=== PATIENT | male | born 1980 | race Caucasian/White ===

== ENCOUNTER 2017-01-15 20:35 | Emergency (ER) | payer SELFPAY ==
[~2017-01-15] VITALS: Ht 170.2 cm; Wt 125.2 kg
[2017-01-15] MEDS ORDERED: PAXIL10 MG ORAL (20:44)
[2017-01-15 21:04] VITALS: BP 126/85
--- NOTE | 2017-01-15 21:18 | Emergency Room Report ---
History of Present Illness General Chief Complaint: Chest Pain Source: Patient Present Illness HPI Patient presents with complaints of chest pain and heaviness He reports that initially he felt some discomfort to his left jaw He feels pain when he moves his jaw open and close Soon after that patient began feeling some heaviness in the chest Patient had a sensation of chills Also developed a mild headache At this time the chest pain has significantly improved Denies any vomiting or diarrhea Denies any back or flank pain Patient reports that he was at an advanced at approximately 6 x 8 o'clock he began feeling the sensation and presents for further eval Allergies: Coded Allergies: No Known Allergies (Unverified , 01/15/17) Patient History Past Medical History: see triage record Pertinent Family History: none Reviewed Nursing Documentation: PMH: Agreed, PSxH: Agreed Nursing Documentation-PMH Past Medical History: No Stated History Review of Systems All Other Systems: negative except mentioned in HPI Physical Exam Vital Signs Date Time Temp Pulse Resp B/P Pulse Ox O2 Delivery O2 Flow Rate FiO2 01/15/17 20:40 98.8 89 20 126/85 97 Room Air Sp02 EP Interpretation: reviewed, normal General Appearance: well appearing, no apparent distress Head: normocephalic, atraumatic Eyes: bilateral eye EOMI, bilateral eye PERRL ENT: hearing grossly normal, normal pharynx, TMs + canals normal, uvula midline Neck: full range of motion, supple, no meningismus, no bony tend Respiratory: lungs clear, normal breath sounds, no rhonchi, no respiratory distress, no retraction, no accessory muscle use Cardiovascular #1: normal peripheral pulses, regular rate, rhythm, no edema, no gallop, no JVD, no murmur Gastrointestinal: normal bowel sounds, non tender, soft, no mass, no organomegaly, non-distended, no guarding, no hernia, no pulsatile mass, no rebound Genitourinary: no CVA tenderness Musculoskeletal: normal inspection Neurologic: oriented x3, responsive, electrician marine III-XII nml as tested, motor strength/ tone normal, sensory intact Psychiatric: mood/affect normal Skin: normal color, no rash, warm/dry, palpation normal Lymphatic: normal inspection, no adenopathy Medical Decision Making Diagnostic Impression: Primary Impression: Chest pain ER Course Patient is a fairly complex patient with multiple differential to consideration including but not limited to cardiac cardiopulmonary and vascular emergencies Patient also reports recent travel from [place] however continues to deny any shortness of breath or pleurisy Patient's d-dimer along with other blood work or appropriate Chest x-ray is somewhat difficult to evaluate given the patient's body habitus but no obvious focal infiltrate Patient continues to do better here in the emergency room in a stable for close outpatient followup Labs Test 01/15/17 21:00 White Blood Count 9.4 K/UL (4.8-10.8) Red Blood Count 4.53 M/UL (4.70-6.10) Hemoglobin 15.0 G/DL (14.2-18.0) Hematocrit 41.9 % (42.0-52.0) Mean Corpuscular Volume 92 FL (80-99) Mean Corpuscular Hemoglobin 33.1 PG (27.0-31.0) Mean Corpuscular Hemoglobin Concent 35.8 G/DL (32.0-36.0) Red Cell Distribution Width 11.2 % (11.6-14.8) Platelet Count 230 K/UL (150-450) Mean Platelet Volume 7.4 FL (6.5-10.1) Neutrophils (%) (Auto) 62.3 % (45.0-75.0) Lymphocytes (%) (Auto) 22.6 % (20.0-45.0) Monocytes (%) (Auto) 8.0 % (1.0-10.0) Eosinophils (%) (Auto) 5.5 % (0.0-3.0) Basophils (%) (Auto) 1.6 % (0.0-2.0) D-Dimer 328 ng/mL (<500) Sodium Level 142 mEQ/L (135-145) Potassium Level 4.1 mEQ/L (3.4-4.9) Chloride Level 99 mEQ/L (98-107) Carbon Dioxide Level 24 mEQ/L (20-30) Anion Gap 19 (5-15) Blood Urea Nitrogen 18 mg/dL (7-23) Creatinine 1.1 mg/dL (0.7-1.2) Estimat Glomerular Filtration Rate > 60 mL/min (>60) Glucose Level 138 mg/dL (74-106) Calcium Level 9.7 mg/dL (8.6-10.2) Total Bilirubin 0.5 mg/dL (0.0-1.2) Aspartate Amino Transf (AST/SGOT) 18 U/L (5-40) Alanine Aminotransferase (ALT/SGPT) 21 U/L (3-41) Alkaline Phosphatase 121 U/L (40-129) Total Creatine Kinase 237 U/L (38-174) Creatine Kinase MB 1.7 ng/mL (< 6.7) Creatine Kinase MB Relative Index 0.7 Troponin I < 0.30 ng/mL (<=0.30) Pro-B-Type Natriuretic Peptide 41 pg/mL (0-125) Total Protein 7.8 g/dL (6.6-8.7) Albumin 5.0 g/dL (3.5-5.2) Globulin 2.8 g/dL Albumin/Globulin Ratio 1.7 (1.0-2.7) Lipase 25 U/L (< 60) Urine Opiates Screen Negative (NEGATIVE) Urine Barbiturates Screen Negative (NEGATIVE) Phencyclidine (PCP) Screen Negative (NEGATIVE) Urine Amphetamines Screen Negative (NEGATIVE) Urine Benzodiazepines Screen Positive (NEGATIVE) Urine Cocaine Screen Negative (NEGATIVE) Urine Marijuana (THC) Screen Negative (NEGATIVE) EKG Diagnostic Results Rate: normal Rhythm: NSR ST Segments: no acute changes Rhythm Strip Diag. Results EP Interpretation: yes Rate: 67 Rhythm: NSR, no PVC's, no ectopy Chest X-Ray Diagnostic Results Chest X-Ray Ordered: Yes # of Views/Limited/Complete: 1 View Interpretation: no consolidation, no effusion, no pneumothorax, no acute cardiopulmonary disease - Mildly difficult study with questionable increased markings however likely secondary to body habitus Indication: Chest Pain Impression: No acute disease Date Electronically Signed: Jan 15, 2017 Time Electronically Signed: 21:40 Interpreting ER Physician: Dr kirkland Last Vital Signs Date Time Temp Pulse Resp B/P Pulse Ox O2 Delivery O2 Flow Rate FiO2 01/15/17 21:04 89 20 Room Air 01/15/17 21:04 98.8 126/85 97 Status: improved Disposition: HOME, SELF-CARE Condition: Improved Referrals: NOT CHOSEN IPA/,REFERRING (PCP) Additional Instructions: Patient is provided with the discharge instructions notified to follow up with primary doctor in the next 2-3 days otherwise return to the er with any worsening symptoms. Please note that this report is being documented using [employer] technology. This can lead to erroneous entry secondary to incorrect interpretation by the dictating instrument. JOSUE KIRKLAND D.O. Jan 15, 2017 21:18
[2017-01-15 21:25] LABS: BASOPHILS % (AUTO) 1.6 % (0.0-2.0); EOSINOPHILS % (AUTO) 5.5 % (0.0-3.0); LYMPHOCYTES % (AUTO) 22.6 % (20.0-45.0); MEAN CORPUSCULAR HEMOGLOBIN 33.1 PG (27.0-31.0); MEAN CORPUSCULAR HGB CONC 35.8 G/DL (32.0-36.0); MEAN CORPUSCULAR VOLUME 92 FL (80-99); MEAN PLATELET VOLUME 7.4 FL (6.5-10.1); NEUTROPHILS % (AUTO) 62.3 % (45.0-75.0); PLATELET COUNT 230 K/UL (150-450); RED BLOOD COUNT 4.53 M/UL (4.70-6.10); RED CELL DISTRIBUTION WIDTH 11.2 % (11.6-14.8); WHITE BLOOD COUNT 9.4 K/UL (4.8-10.8)
[2017-01-15 21:42] LABS: TROPONIN I < 0.30 ng/mL (<=0.30)
[2017-01-15 21:53] LABS: ALANINE AMINOTRANSFERASE 21 U/L (3-41); ALBUMIN/GLOBULIN RATIO 1.7 (1.0-2.7); ANION GAP 19 (5-15); CALCIUM 9.7 mg/dL (8.6-10.2); CARBON DIOXIDE 24 mEQ/L (20-30); CHLORIDE 99 mEQ/L (98-107); CREATININE 1.1 mg/dL (0.7-1.2); GLOMERULAR FILTRATION RATE > 60 mL/min (>60); HEMOLYSIS 33; LIPASE 25 U/L (< 60); POTASSIUM 4.1 mEQ/L (3.4-4.9); SODIUM 142 mEQ/L (135-145); TOTAL PROTEIN 7.8 g/dL (6.6-8.7)
[2017-01-15 21:54] LABS: ASPARTATE AMINO TRANSFERASE 18 U/L (5-40)
[2017-01-15 22:00] VITALS: BP 132/69
[2017-01-15 22:04] LABS: CKMB 1.7 ng/mL (< 6.7)
[2017-01-15 22:54] VITALS: BP 132/69
--- NOTE | 2017-01-16 18:11 | Cardiology Report ---
APPROVED REPORT EKG Measurement Heart [id number] Normal sinus rhythm Normal ECG
--- NOTE | 2017-01-17 09:34 | Diagnostic Imaging Report ---
Indication: Chest pain Technique: Single portable AP view of the chest. Findings: Comparison: None. The bones and extra pulmonary soft tissues, cardiomediastinal silhouette, pulmonary vasculature and parenchyma, and pleural surfaces are unremarkable. IMPRESSION: Negative portable AP chest.
== END 2017-01-15 22:57 | disposition home or self-care (01) ==
LOC: EMR 21:10
DX: R07.9 Chest pain, unspecified (principal); R68.84 Jaw pain; R51 Headache
CPT/HCPCS: 36415; 71010; 80053; 80300; 82550; 82553; 83690; 83880; 84484; 85025; 85379; 93005; 99284